=== PATIENT | male | born 1985 | race Caucasian/White ===

== ENCOUNTER 2023-05-23 20:47 | Emergency (ER) | payer BC, SELFPAY ==
--- NOTE | ~2023-05-23 | CT_ITS ---
EXAMINATION: CT abdomen pelvis w con DATE: 05/24/2023 04:01 INDICATION: Abdominal pain, diarrhea, leukocytosis TECHNIQUE: Computed tomography (CT) of the abdomen and pelvis was performed with 100 CC Omnipaque 350 intravenous contrast. Automated exposure control and iterative reconstruction technique were employe d. Exam dose: 1708.78 mGy-cm total exam DLP. COMPARISON: None. FINDINGS: The lung bases are clear. Normal heart size. No pericardial or pleural effusion. There is a fat and liver containing right lateral spigelian abdominal wall hernia. The liver, gallbladder, bile ducts, pancreas, pancreatic duct, spleen and adrenal glands are unremark able. Probable 8 mm lower pole left renal cyst. The kidneys are otherwise unremarkable. No urinary tract ca lculus or hydroureteronephrosis. The urinary bladder and prostate gland are unremarkable. Normal caliber of the abdominal aorta. No intraperitoneal or retroperitoneal or pelvic mass lesion or adenopathy or ascites. There R right colon air-fluid levels consistent with clinical presentation of diarrhea. No bowel obst ruction, bowel wall thickening, pneumatosis or intraperitoneal free air is detected. There is slight colonic diverticulosis. No CT evidence of diverticulitis or appendicitis. Small fat-containing right inguinal hernia and small fat-containing umbilical hernia. No suspicious osteolytic or osteoblastic lesions are noted. IMPRESSION: Right upper lateral abdominal wall spigelian hernia containing fat and a small amount of liver 8 mm left renal cyst Slight colonic diverticulosis Air-fluid levels the right colon, consistent with clinical presentation of diarrhea; no bowel obstruc tion or free air Reviewed, dictated and finalized at [facility]. Reviewed, dictated and finalized at [facility]. IMPRESSION: Right upper lateral abdominal wall spigelian hernia containing fat and a small amount of liver 8 mm left renal cyst Slight colonic diverticulosis Air-fluid levels the right colon, consistent with clinical presentation of diar amber; no bowel obstruction or free air
[2023-05-23 20:59] VITALS: BP 152/98; PULSE 130; RESP 15; TEMP 36.6; O2SAT 96
[2023-05-23 21:19] LABS: Basophils Absolute Auto 0.1 K/mm3 (0.0-0.1); Basophils Percent Auto 0.4 % (0.2-1.2); Eosinophils Absolute Auto 1.2 K/mm3 (0-0.3); Eosinophils Percent Auto 7.3 % (0-4.4); Hematocrit 57.8 % (42.0-52.0); Immature Granulocyte Absolute 0.19 K/mm3 (0.00-0.031); Immature Granulocyte Percent A 1.1 % (0-0.5); Lymphocytes Absolute Auto 1.85 K/mm3 (0.9-3.2); Mean Corpuscular HGB Conc 32.9 g/dl (32-36); Mean Corpuscular Volume 88.2 fl (80-100); Mean Platelet Volume 9.3 fl (7.4-10.4); Monocytes Absolute Auto 0.8 K/mm3 (0.1-0.6); Monocytes Percent Auto 4.9 % (2.6-8.5); Neutrophils Absolute Auto 12.7 K/mm3 (1.3-6.7); Neutrophils Percent Auto 75.3 % (45.5-73.1); Platelet Count Result 313 k/mm3 (150-375); Red Blood Count 6.55 M/mm3 (4.6-6.20); Red Cell Distribution Width 14.3 % (11.5-14.5); White Blood Count 16.8 K/mm3 (4.5-10.0)
[2023-05-23 21:31] LABS: Alanine Aminotransferase 28 U/L (6-50); Albumin Level 4.7 g/dL (3.5-5.1); Alkaline Phosphatase 35 U/L (38-126); Anion Gap 14 mmol/L (8-16); Aspartate Amino Transferase 22 U/L (17-59); Bilirubin,Total 0.4 mg/dL (0.2-1.3); Blood Urea Nitrogen 12 mg/dL (9-20); Calcium 9.3 mg/dL (8.4-10.2); Carbon Dioxide 26 mmol/L (22-30); Chloride 102 mmol/L (98-107); Estimated CRCL calculation 97 ml/min; Estimated Glomerular Filt Rate > 60; Glucose 126 mg/dL (65-110); Lipase 91 U/L (23-300); Potassium 3.6 mmol/L (3.4-5.0); Sodium 142 mmol/L (137-145)
[2023-05-23 21:59] LABS: Appearance Urine Clear (Clear); Bacteria Urine None Seen /hpf; Bilirubin Urine 1+ (Negative); Blood Urine Negative (Negative); Color Urine Dark Yellow (Yellow); Glucose Urine UA Negative (Negative); Hyaline Casts Urine Present /lpf; Ketones Urine Trace mg/dL (Negative); Leukocyte Esterase Ur Negative LEU/UL (Negative); Nitrate Urine Negative (Negative); Non Pathogenic Casts >20; Protein Urine 1+ mg/dL (Negative); RBC Urine 0-2 /hpf (0-2); Specific Grav Ur 1.032 (1.001-1.035); Squamous Epithelial Cell Urine Few /hpf (Few); Urobilinogen Urine 0.2 mg/dL (<2.0); WBC Urine 0-5 /hpf; pH Urine 5.5 (5.0-9.0)
[2023-05-23 22:01] LABS: Add Urine Microscopic? YES
[2023-05-24] VITALS (28 sets, daily range): BP systolic 118–123; BP diastolic 65–81; PULSE 72–118; RESP 13–28; TEMP 37.1; O2SAT 94–99
--- NOTE | 2023-05-24 02:34 | ECG_ITS ---
Measurements Intervals [place] Rate: 111 P: 2 MD: 146 QRS: -9 QRSD: 97 T: 23 QT: 328 QTc: 446 Interpretive Statements SINUS TACHYCARDIA BORDERLINE R WAVE PROGRESSION, ANTERIOR LEADS MINIMAL Q WAVES- INFERIOR LEADS BORDERLINE T WAVE ABNORMALITY- INFERIOR LEADS ABNORMAL ECG NO PREVIOUS ECG AVAILABLE FOR COMPARISON Electronically Signed On 05-24-2023 7:17:04 CDT by Bandar Bustillos D.O.
--- NOTE | 2023-05-24 03:35 | PC.NURSE ---
This RN assumed care of patient. This RN received report from Lindsay VAIL.
[2023-05-24] MEDS: SODIUM CHLORIDE 0.9% IV 1,000 ML 999 ML IV CONT ×2 (03:41→04:58)
[2023-05-24] MEDS: ONDANSETRON INJ 4 MG/2 ML VIAL IV PUSH (03:42)
[2023-05-24] MEDS: DICYCLOMINE HCL INJ 20 MG/2 ML VIAL IM (03:45)
--- NOTE | 2023-05-24 07:25 | ED.GENADULT ---
HPI - General Adult General Chief complaint: Nausea/Vomiting/Diarrhea <Alex Diaz MD - Last Filed: 05/24/23 07:28> Stated complaint: N/V/D FOR 2 WEEKS <Alex Diaz MD - Last Filed: 05/24/23 07:28> Time Seen by Provider: 05/24/23 03:03 <Alex Diaz MD - Last Filed: 05/24/23 07:28> History of Present Illness HPI narrative: Patient 37-year-old gentleman who presents the emergency department with chief complaint of abdominal pain. The patient reports has been having diarrhea for 2 weeks and reports that he has had diffuse pain throughout his abdomen patient reports that its been waxing and waning the patient states that he think he he may have eaten some bad food that may have triggered this the patient reports that his abdomen is diffusely tender and not able to get comfortable. <Alex Diaz MD - Last Filed: 05/24/23 07:28> Related Data Allergies/adverse reactions: Allergies Allergy/AdvReac Type Severity Reaction Status Date / Time Penicillins Allergy Swelling Verified 05/23/23 21:04 <Alex Diaz MD - Last Filed: 05/24/23 07:28> Review of Systems Review of Systems: A 10 system review of systems was completed on the patient and is negative except for what is stated in the HPI. Nursing and ancillary documentation was reviewed. <Alex Diaz MD - Last Filed: 05/24/23 07:28> Exam Narrative: GENERAL: Well-appearing, well-nourished, and in no acute distress. HEAD: Normocephalic, atraumatic. EYES: PERRLA and EOMI. ENT: Nares clear, no rhinorrhea or epistaxis. Mucous membranes moist. NECK: Supple. CHEST: Clear to auscultation. No respiratory distress. HEART: Regular rate and rhythm. No murmur heard. Normal peripheral pulses. ABDOMEN: Soft, diffusely tender to palpation, nondistended, normal active bowel sounds. EXTREMITIES: Normal range of motion. No edema. SKIN: Warm, dry, no rash. NEURO: No focal deficits. Alert and oriented x3. PSYCH: Normal mood and affect. <Alex Diaz MD - Last Filed: 05/24/23 07:28> Course Vital Signs Vital signs: Vital Signs Temperature 97.9 F 05/23/23 20:59 Pulse Rate 130 H 05/23/23 20:59 Respiratory Rate 15 05/23/23 20:59 Blood Pressure 152/98 H 05/23/23 20:59 Pulse Oximetry 96 05/23/23 20:59 Oxygen Delivery Room Air 05/23/23 20:59 Temperature 98.8 F 05/24/23 02:31 Pulse Rate 80 05/24/23 08:43 Respiratory Rate 16 05/24/23 08:43 Blood Pressure 121/65 05/24/23 07:34 Pulse Oximetry 99 05/24/23 08:43 Oxygen Delivery Room Air 05/23/23 20:59 <Alex Diaz MD - Last Filed: 05/24/23 07:28> Vital Signs Temperature 97.9 F 05/23/23 20:59 Pulse Rate 130 H 05/23/23 20:59 Respiratory Rate 15 05/23/23 20:59 Blood Pressure 152/98 H 05/23/23 20:59 Pulse Oximetry 96 05/23/23 20:59 Oxygen Delivery Room Air 05/23/23 20:59 Temperature 98.8 F 05/24/23 02:31 Pulse Rate 80 05/24/23 08:43 Respiratory Rate 16 05/24/23 08:43 Blood Pressure 121/65 05/24/23 07:34 Pulse Oximetry 99 05/24/23 08:43 Oxygen Delivery Room Air 05/23/23 20:59 <Thuy Lindsey MD - Last Filed: 05/24/23 14:39> Medical Decision Making MDM Narrative Medical decision making narrative: pt signed out to me pending CT. Briefly, pt w/ n/v/d and diffuse abd discomfort w/ diarrhea. On my eval was feeling well, no further pain or diarrhea, abd exam soft/benign/nontender. CT shows spigelian hernia w/ liver; I discussed this w/ surgeon Dr Panchal who reviewed imaging and advised outpt f/u, no emergent intervention needed especially since pt asx at this time and didn't have any RUQ pain. Pt updated on imaging/findings and stable for dc at this time. Return precautions provided and rx for antiemetics. <Thuy Lindsey MD - Last Filed: 05/24/23 14:39> Vital Signs Vital Signs: Vital Signs Temperatur
--- NOTE | 2023-05-24 07:30 | PC.NURSE ---
pt resting quietly on stretcher. continue waiting ct reading.
== END 2023-05-24 08:43 | disposition home or self-care (01) ==
PROVIDERS: Emergency Medicine; Emergency Provider Emergency Medicine; PCP Family Medicine Sports Medicine
DX: K52.9 Noninfective gastroenteritis and colitis, unspecified (principal); K43.9 Ventral hernia without obstruction or gangrene; R00.0 Tachycardia, unspecified; R94.31 Abnormal electrocardiogram [ECG] [EKG]
CPT/HCPCS: 36415; 74177; 80053; 81001; 83690; 85025; 93005; 96361; 96372; 96374; 99284; J0500; J2405; J7030; Q9967